=== PATIENT | female | born 1990 | race Caucasian/White ===

== ENCOUNTER → 2024-03-26 14:16 | Outpatient (REF) | payer BC, OTHER, SELFPAY | LOC: RAD 14:16 | PROVIDERS: ATTENDING PHYSICIAN Nurse Practitioner; FAMILY PHYSICIAN Physician Assistant Medical | DX: M47.812 Spondylosis without myelopathy or radiculopathy, cervical region (principal); M54.2 Cervicalgia | CPT/HCPCS: 72040 ==

== ENCOUNTER → 2024-10-16 15:36 | Outpatient (REF) | payer BC, OTHER, SELFPAY | LOC: RAD 15:36 | PROVIDERS: ATTENDING PHYSICIAN Physician Assistant Medical | DX: M79.641 Pain in right hand (principal) | CPT/HCPCS: 73130 ==

== ENCOUNTER → 2024-12-22 12:38 | Outpatient (REF) | payer BC, OTHER, SELFPAY | LOC: RAD 12:38 | PROVIDERS: ATTENDING PHYSICIAN Physician Assistant Medical | DX: R10.30 Lower abdominal pain, unspecified (principal) | CPT/HCPCS: 74176 ==

== ENCOUNTER 2025-03-16 20:19 | Emergency (ER) | payer BC, OTHER, SELFPAY ==
[2025-03-16 20:31] VITALS: BP 140/101
--- NOTE | 2025-03-16 22:48 | ED.GENMED ---
History of Present Illness
General
Chief Complaint: Eye Problems
Source: patient
Exam Limitations: none
Time Seen by Provider: 03/16/25 22:23
Nursing documentation reviewed up to this point in time: agreed with
History of Present Illness
History of Present Illness:
Note:
CHIEF COMPLAINT(S)
Eye pain following a dog scratch to the eye.
HISTORY OF PRESENT ILLNESS
The patient is a 35-year-old female who presents with eye pain after being scratched by her puppy. According to the patient, she was petting the dog when it scratched her eye. She has not had a tetanus shot in over 10 years. The patient�s eye was
examined, and diagnostic staining with eye drops was performed. The patient was informed that the staining showed a scratch, but she was reassured that it was not a significant injury and should heal on its own in three to five days. She was advised
to not wear contact lenses, as they can trap bacteria and exacerbate the problem. The patient does not wear contacts regularly and prefers glasses. She was educated on the use of antibiotic eye drops to promote healing and reduce discomfort. It was
also explained that a burning sensation from the drops is normal. 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
CHRONIC MEDICAL CONDITIONS SIGNIFICANTLY AFFECTING CARE
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
REVIEW OF SYSTEMS
- Eye: Scratch on the eye from dog claw, pain, and sensitivity.
PHYSICAL EXAM
General: Alert, no acute distress.
Skin: Warm, dry.
Head: Normocephalic, atraumatic.
Neck: Supple, trachea midline.
Eye: Staining showed a scratch, no signs of significant injury.
Cardiovascular: Normal peripheral perfusion, no edema.
Respiratory: Respirations are non-labored.
Gastrointestinal: Abdomen nondistended.
Back: Normal range of motion, normal alignment.
Musculoskeletal: Normal range of motion, normal strength.
Neurological: Alert and oriented to person, place, time, and situation, no focal neurological deficit observed.
Psychiatric: Cooperative, appropriate mood & affect.
PLAN
1. Administer tetanus booster due to more than 10 years since the last shot.
2. Prescribe antibiotic eye drops, to be used one drop every three to four hours for a week.
3. Advise against using contact lenses to avoid trapping bacteria.
4. Recommend follow-up with an army manager for a comprehensive eye exam.
5. Instruct the patient that the eye scratch will likely heal in three to five days and that some burning from the drops is normal.
DIFFERENTIAL DIAGNOSIS
The Differential Diagnosis includes, in no particular order and is not limited to:
1. Corneal abrasion
2. Conjunctivitis
3. Foreign body in the eye
4. Uveitis
5. Keratitis
6. Scleritis
7. Blepharitis
8. Corneal ulcer
9. Allergic conjunctivitis
10. Herpes simplex virus keratitis
Disposition:
SUMMARY OF ENCOUNTER
A 35-year-old female presented with left eye pain after being scratched by her puppy. On fluorescein examination, a corneal abrasion was identified at the 12 oclock position with no additional scratches noted. The patient experienced relief
following the application of proparacaine. She has not received a tetanus shot in over 10 years.
DISPOSITION
Discharge home.
ASSESSMENT
Corneal abrasion secondary to a dog scratch.
PLAN
1. Administer tetanus booster due to last shot being over 10 years ago.
2. Prescribe gentamicin ophthalmic eye drops to be used every three to four hours for one week.
3. Instruct the patient not to wear contact lenses to prevent bacteria trapping.
4. Advise the patient that the abrasion should heal in approximately three to five days.
5. Follow-up appointment scheduled with army manager.
PATIENT EDUCATION AND COUNSELING
Informed the patient that the sensation of burning with the eye drops is normal and the abrasion should heal independently within a few days.
FOLLOW-UP INSTRUCTIONS
The patient will follow up with her army manager for a comprehensive eye examination.
MEDICATION RECONCILIATION
- Gentamicin ophthalmic drops prescribed for use every three to four hours for one week.
MEDICAL DECISION MAKING
- Complexity of Data Reviewed: Chronic conditions affecting care include Gregg-Danlos syndrome. Differential diagnosis includes corneal abrasion, conjunctivitis, foreign body in the eye, uveitis, keratitis, scleritis, blepharitis, corneal ulcer,
allergic conjunctivitis, and herpes simplex virus keratitis.
- Risk:
Prescription medication was prescribed with gentamicin ophthalmic drops.
DIAGNOSIS
- Corneal abrasion (ICD-10 code: S05.0XXA).
Past History
Past History
ED Past Medical History: Fibromyalgia, Other (ehler's danlos, chronic pain syndrome/follows with pain management, narcotic dependent, chronic migraine headaches, chronic pelvic as well as low back pain, fibromyalgia) and Other (Interstitial
Cystitis, Renal stones)
ED Past Surgical History: Tonsilectomy
Social History
Tobacco: Non-smoker
Alcohol: None
Drug: None
Personal: Single
Living: with family
Employment: Employed
Family History
Family History: Hypertension
Phy Exam
Physical Exam
Physical Exam:
.
Course
Orders/Labs/Results
Orders:
Orders
03/16/25 22:45
Gentamicin [Genoptic 0.3% Eye Drops] See Dose Instructions OPHTH NOW STA
Tetanus/Diphth/Acelpertussis [Adacel] 0.5 ml IM .ONCE ONE
Vital Signs
Initial and Last Documented VS:
Initial Vital Signs
Temp Pulse Resp BP Pulse Ox
98.4 F 122 15 140/101 98
03/16/25 20:31 03/16/25 20:31 03/16/25 20:31 03/16/25 20:31 03/16/25 20:31
Last Documented Vital Signs
Temp Pulse Resp BP Pulse Ox
98.4 F 122 15 140/101 98
03/16/25 20:31 03/16/25 20:31 03/16/25 20:31 03/16/25 20:31 03/16/25 22:49
*Pulse Oximetry
SaO2: 98
Oxygen Mode of Delivery: Room air
Patient hypoxic: no
*Critical Care Note
Total Time (30-74mins, 75-104mins- exclusive of procedures): Not Applicable
ED Attending Note
-
Portions of this chart may have been created with voice recognition software.� Occasional wrong word or��sound alike� substitutions may have occurred due to the inherent limitations of voice recognition software.
Discharge Plan
Departure
Patient Disposition: Home (Routine Discharge)
Date of Disposition: 03/16/25
Time of Disposition: 22:49
Patient with high blood pressure during this ER visit?: Yes
Condition: Fair
Discharge Problem:
Corneal abrasion, left
Instructions: Corneal Abrasion (DC), How to Use Eye Drops
Prescriptions:
No Action
prednisolone sodium phosphate [Orapred] 15 MG/5 ML solution
15 mg PO BID Qty: 60 0RF
Rx Instructions:
15 mg bid x 4 days
cyclobenzaprine 10 MG tablet
10 mg PO TIDPRN PRN (Reason: pain) Qty: 20 0RF
methylprednisolone [Medrol (Rashid)] 4 MG tablets,dose pack
4 tab PO . DIRECT Qty: 1 0RF
metformin 500 MG tablet
500 mg PO DAILY
sumatriptan succinate 100 MG tablet
100 mg PO PRN PRN (Reason: migraines)
phenazopyridine 200 MG tablet
200 mg PO DAILY
propranolol 80 MG capsule,extended release 24 hr
80 mg PO DAILY
promethazine 25 MG tablet
25 mg PO PRN PRN (Reason: nausea)
nabumetone 500 MG tablet
500 mg PO PRN PRN (Reason: anti-inflammatory)
trimethobenzamide [Tigan] 300 MG capsule
300 mg PO PRN PRN (Reason: nausea)
mirabegron [Myrbetriq] 50 MG tablet extended release 24 hr
50 mg PO
topiramate [Trokendi XR] 100 MG capsule,extended release 24hr
1,000 mg PO HS
cholecalciferol (vitamin D3) 5,000 UNIT tablet,disintegrating
5,000 unit PO DAILY
ketorolac 10 MG tablet
10 mg PO QID Qty: 16 0RF
tamsulosin 0.4 MG capsule
0.4 mg PO HS Qty: 7 0RF
ketorolac 10 MG tablet
10 mg PO Q6HPRN PRN (Reason: renal colic pain) Qty: 9 0RF
Referrals:
Mary Vazquez PA-C [Family Provider, Family Practice]
Activity Restrictions/Additional Instructions:
Please use the Genoptic eyedrops provided 1 drop in the left eye every 4 hours while awake for 5 days.
Keep your appointment with your eye doctor as discussed
Thank You for choosing [facility].
It was a pleasure meeting you and taking part in your care. We hope for your continued healing and wellness.
Please read discharge instructions in their entirety. However, they are for general education and may not describe your exact diagnosis at discharge. Information on your ER visit and medical conditions were discussed with you along with appropriate
follow up information...
If indicated, please take your medications as instructed and indicated on discharge paperwork.
Please schedule a follow up appointment as directed. Call to schedule an appointment
Please return to the emergency department with ANY change in, persisting, or worsening of symptoms. If any of your symptoms do not improve, or persist, or become more severe within 6-12 hours, please return to the emergency department for further
care.
Please return to the emergency department if you develop a headache, neck pain/stiffness, fever greater than 100.4F, chest pain, shortness of breath, persistent nausea, vomiting, slurred speech, difficulty walking, numbness/tingling, weakness, signs
of infection or any other symptoms that are worrisome to you.
If you have any questions or concerns please do not hesitate to call the Hospital at .
Interventions
Interventions:
*Risk Screen - Suicide Last Done: 03/16/25 20:31
*General Assessment Last Done: 03/16/25 20:31
*Neglect/Abuse Screening Last Done: 03/16/25 20:31
*ED COVID-19 Vaccine History Last Done: 03/16/25 20:31
*ED Influenza Vaccine History Last Done: 03/16/25 20:31
*Nursing Disposition Last Done: 03/16/25 23:18
Discharge Date and Time
Discharge Date/Time: 03/16/25 23:19
Print Language: SWISS
[2025-03-16] MEDS: ADACEL 0.5 ML IM (23:07)
[2025-03-16] MEDS: GENOPTIC 0.3% EYE DROPS 1 DROP OPHTH (23:07)
== END 2025-03-16 23:19 | disposition home or self-care (01) ==
LOC: EMR 20:19
PROVIDERS: EMERGENCY PHYSICIAN Student in an Organized Health Care Education/Training Program; FAMILY PHYSICIAN Physician Assistant Medical
DX: S05.02XA Injury of conjunctiva and corneal abrasion without foreign body, left eye, initial encounter (principal); W54.8XXA Other contact with dog, initial encounter; M79.7 Fibromyalgia; Q79.60 Ehlers-Danlos syndrome, unspecified; Z23 Encounter for immunization
CPT/HCPCS: 99283; 90471; 90715